=== PATIENT | male | born 1975 | race Caucasian/White ===

== ENCOUNTER 2017-04-04 17:05 | Inpatient (IN) | payer OTHER ==
[~2017-04-04] VITALS: Ht 180.3 cm; Wt 113.4 kg
--- NOTE | ~2017-04-04 | DS ---
Unit #: [id number] #: [id number] Patient: [facility] [id number] [facility] [address] [place] [address] [id number] MR#: [id number] NAME: ERWIN KATZ ROOM: [facility] Age: 41 Sex: M Admission Date: 04/04/2017 : 1975 Discharge Date: 04/08/2017 Attending Physician: Homa Torres M.D. Primary Care Physician: Generic Doctor Not In System DISCHARGE SUMMARY IDENTIFYING DATA Mr. Katz is a 41-year-old, , white male who is a resident of [place], [place] and was brought to the hospital accompanied by one of his friends. DISCHARGE DIAGNOSES Psychiatric: Alcohol dependence, moderate and acute withdrawals; alcohol-induced mood disorder. Medical: Hypertension and asthma. Stressors: Moderate psychosocial stressors. HISTORY OF PRESENT ILLNESS Please see initial psychiatric evaluation for details. PAST PSYCHIATRIC HISTORY Please see initial psychiatric evaluation for details. PAST MEDICAL HISTORY Please see initial psychiatric evaluation for details. HOSPITAL COURSE The patient was admitted to the adult psychiatric unit at [facility] [place] and was oriented to the hospital environment. Routine p.r.n. medications were initiated, and he was started back on his home medications and medications were adjusted and detox protocol was initiated and he was closely monitored. He was taking medications regularly and was tolerating them fairly well, and was able to show a decent therapeutic response with improvement in depression and anxiety and as such, it was decided that he will be discharged home and will continue treatment on an outpatient basis. DISCHARGE CONDITION Stable. PROGNOSIS Fair. Dictated by... Lucía Pino/carlene TD: 04/08/2017 12:59 Unit #: [id number] #: [id number] Patient: ERWIN KATZ JOB #: [id number] DISCHARGE SUMMARY Page 1 of 1 X Homa Torres MD X DISCHARGE SUMMARY
--- NOTE | ~2017-04-04 | PA ---
Unit #: [id number] #: [id number] Patient: ERWIN OLIVEIRA [id number] [facility] [address] [place] [address] [id number] MR#: [id number] NAME: ERWIN OLIVEIRA ROOM: P178 Age: 41 Sex: M Admission Date: 04/04/2017 : 1975 Date of Assessment: Attending Physician: Homa Torres M.D. Admitting Physician: Homa Torres M.D. Primary Care Physician: Elke Doctor Not In System PSYCHIATRIC ASSESSMENT DATE OF SERVICE 04/05/2017. IDENTIFYING DATA Mr. Tran is a 41-year-old white male who is a resident of [place], [place], and was brought to the hospital accompanied by one of his friend. CHIEF COMPLAINT "I've been drinking and I use Benadryl." HISTORY OF PRESENT ILLNESS Mr. Tran is a 41-year-old white male with history of alcohol dependence, who was brought to the hospital. Upon presentation, had a blood alcohol level of 0.162 and reports that he was brought in by sponsor today after 30 days of clean time and he reports that he relapsed related to his girlfriend accusing of drinking on Friday and "I used Benadryl and did not drink," so this made me mad and I relapsed and since then, "I've been drinking beer until I black out. Today, I used eight to nine 24 5-ounce beers." He reports increasing depression, anxiety, irritability, restlessness, but denies any suicidal ideations, intent, or plan. SUBSTANCE ABUSE HISTORY The patient reports alcohol to be his drug of choice and has been drinking since he was 18 years old and currently has been drinking a 20 to 30 beers a day. PAST PSYCHIATRIC HISTORY The patient reports [facility] and currently, he is not active in any treatment program, is not seeing a psychiatrist, and is not taking any psychotropic medications. PAST MEDICAL HISTORY Significant for asthma, history of withdrawal seizures. ALLERGIES No known medication allergies. CURRENT MEDICATIONS Topamax, doxepin, and Ventolin. PERSONAL AND SOCIAL HISTORY Unit #: [id number] #: [id number] Patient: ERWIN OLIVEIRA A 41-year-old white male who reports that he is single, unemployed, and lives at home with his father and has fairly decent social support system. MENTAL STATUS EXAMINATION Young white male who was casually dressed with fair personal hygiene, appears to be in no acute distress or discomfort. He was awake and alert on interaction with intact orientation to time, place, and person. His mood was anxious and depressed with a congruent affect. His speech was slow and restricted in content. His thought processes were disorganized with some looseness of associations and suicidal ideations. His insight and judgment remain significantly impaired. DIAGNOSTIC IMPRESSION Psychiatric: Alcohol dependence, moderate and acute withdrawals; alcohol-induced mood disorder. Medical: Hypertension and asthma. Stressors: Moderate psychosocial stressors. TREATMENT PLAN 1. The patient has presented with history of substance abuse and has been decompensating and will need inpatient hospitalization for detoxification, and safety and stabilization. We will start him back on his home medications. We will adjust the medications and monitor response. 2. Supportive therapy was provided to the patient. 3. Safe, structured, and nourishing environment will be provided. ESTIMATED LENGTH OF STAY 4 to 5 days. ABILITY TO HELP SELF Limited. WILLINGNESS TO HELP SELF The patient appears to be willing to help self. STRENGTHS 1. Communicative. 2. Cooperative. PROBLEMS 1. Chronic dysphoric symptoms. 2. Chronic chemical dependency. 3. Poor social support system. DISCHARGE CRITERIA This will be contingent upon the patient's ability to go through detox without having any significant withdrawal symptoms as well as his ability to stay safe to himself, particularly after discharge from the hospital. Dictated by... Lucía Pino/carlene TD: 04/05/2017 18:27 JOB #: [id number] Unit #: [id number] #: [id number] Patient: ERWIN OLIVEIRA PSYCHIATRIC ASSESSMENT Page 1 of 1 X Homa Torres MD PSYCHIATRIC ASSESSMENT
--- NOTE | ~2017-04-04 | HP ---
Unit #: [id number] #: [id number] Patient: ERWIN OLIVEIRA [id number] [place] [address] [id number] MR#: [id number] NAME: ERWIN OLIVEIRA ROOM: P178 Age: 41 Sex: M Admission Date: 04/04/2017 : 1975 Attending Physician: Homa Torres M.D. Admitting Physician: Homa Torres M.D. Primary Care Physician: Generic Doctor Not In System HISTORY AND PHYSICAL HISTORY OF PRESENT ILLNESS Patient is a 41-year-old male who states he is admitted due to alcohol abuse. PAST MEDICAL HISTORY None. PAST SURGICAL HISTORY None. ALLERGIES None. SOCIAL HISTORY Positive for alcohol and cocaine yesterday. FAMILY HISTORY Noncontributory. REVIEW OF SYSTEMS CONSTITUTIONAL: No fever or chills. HEENT: Denies any sore throat, ear pain or runny nose. CARDIOVASCULAR: Denies chest pain, irregular heart rhythm or palpitations. CHEST: Denies shortness of breath or cough. No hemoptysis. GASTROINTESTINAL: Denies nausea, vomiting, diarrhea or chronic constipation. ENDOCRINE: Denies history of increased thirst or urination. No recent significant weight loss or gain. GENITOURINARY: Denies dysuria, frequency, or hematuria. SKIN: Denies any rashes. HEMATOLOGIC: Denies history of increased bleeding or bruising. MUSCULOSKELETAL: Denies any hot, swollen joints. No generalized muscle pain. NEUROLOGIC: Denies problems with vision or speech. No frequent, severe headaches. No numbness, tingling or weakness in any extremities. Denies loss of bladder or bowel control. CURRENT MEDICATIONS 1. Topiramate 100 mg p.o. q.h.s. 2. Doxepin 50 mg p.o. q.h.s. 3. Ventolin inhaler 2 puffs p.o. q. 6 hours p.r.n. PHYSICAL EXAMINATION Unit #: [id number] #: [id number] Patient: ERWIN OLIVEIRA GENERAL: Alert, oriented, in no acute distress. VITAL SIGNS: Blood pressure 154/98, heart rate 115, respirations 20. HEIGHT: 5 feet 11 inches. WEIGHT: 250 pounds. SKIN: Warm and dry without rash or lesion. Multiple tattoos to bilateral upper arms, back, bilateral lower legs. HEENT: Normocephalic. TMs not viewed. Oral and nasal passages clear. Conjunctivae clear. PERRLA. EOMs intact. NECK: Supple without lymphadenopathy or thyromegaly. HEART: Regular rate and rhythm without murmur. LUNGS: Clear. ABDOMEN: Soft, nontender, without masses or hepatosplenomegaly. : Not done. EXTREMITIES: No evidence of cyanosis, clubbing or edema. Moves all without focal deficit. NEUROLOGICAL: Grossly within normal limits. Cranial Nerves: II: Visual clark are intact. III, IV AND : Extraocular movements are intact. Pupils are equal, round and reactive to light. V: Facial sensation is grossly normal. VII: Facial movements and expression are normal. VIII: Auditory acuity grossly intact. IX, X: Uvula is midline. Phonation is normal. XI: Patient shrugs shoulders and turns head normally. XII: Tongue protrudes in the midline. Sensory and Motor Function: Sensory and motor sensation is grossly normal. Motor: moves all extremities well. Coordination: Gait is normal. Deep Tendon Reflexes: Intact. IMPRESSION Psychiatric admission. RECOMMENDATIONS PSYCHIATRIC: Per psychiatrist. MEDICAL: No contraindication to participate in facility's activities. MEDICAL PROGNOSIS Good. Dictated by... Samira Valdes/fernando TD: 04/05/2017 17:50 JOB #: [id number] Unit #: [id number] #: [id number] Patient: ERWIN OLIVEIRA HISTORY AND PHYSICAL Page 1 of 1 X Paige Santillan APR X HISTORY AND PHYSICAL
--- NOTE | ~2017-04-04 | PN ---
Unit #: [id number] #: [id number] Patient: ERWIN KATZ [id number] [facility] [address] [place] [address] [id number] MR#: [id number] NAME: ERWIN KATZ ROOM: P178 Age: 41 Sex: M Admission Date: 04/04/2017 : 1975 Attending Physician: Homa Torres M.D. Admitting Physician: Homa Torres M.D. Primary Care Physician: Generic Doctor Not In System [facility] PROGRESS NOTES DATE 04/06/2017. DISCUSSION Mr. Katz is a 41-year-old white male who was seen today and chart reviewed. He was discussed with the staff. He has been anxious but (1) He has been taking his medications and tolerating them with no reported side effects. MENTAL STATUS EXAMINATION Young white male who was casually dressed and fair hygiene. He appeared to be in no acute distress. He appears alert. His mood is anxious. He has a congruent affect. His speech is slow. He denies any suicidal or homicidal ideation. His insight and judgment appear slightly impaired. TREATMENT PLAN 1. Continue with his current medication and treatment protocol. We will monitor his response to medication and make adjustments as needed. 2. Will continue to follow up. Dictated by... Homa Torres M.D. IAA/gz TD: 04/07/2017 14:33 JOB #: [id number] [facility] PROGRESS NOTES Page 1 of 1 X Homa Torres MD PROGRESS NOTE
--- NOTE | ~2017-04-04 | PN ---
Unit #: [id number] #: [id number] Patient: ERWIN KATZ [id number] [facility] [address] [place] [address] [id number] MR#: [id number] NAME: ERWIN KATZ ROOM: [facility] Age: 41 Sex: M Admission Date: 04/04/2017 : 1975 Attending Physician: Homa Torres M.D. Admitting Physician: Homa Torres M.D. Primary Care Physician: Generic Doctor Not In System [facility] PROGRESS NOTES DATE OF SERVICE 04/07/2017 DISCUSSION Mr. Katz is a 41-year-old white male with substance abuse and mood disorder who was seen today. Chart was reviewed and case was discussed with the staff. He has been showing very poor insight into his situation and trying to actively mask and minimize his alcohol addiction and wishing to leave the treatment program. Meanwhile, he has been taking the medications and tolerating them fairly well with no reported side effects. MENTAL STATUS EXAMINATION Young white male who is casually dressed with fair personal hygiene, appears to be in no acute distress or discomfort. The patient was awake and alert on interaction with intact orientation. His mood is anxious with congruent affect. He denies any suicidal or homicidal ideations and also denies any auditory or visual hallucinations. His insight and judgment remain slightly impaired. TREATMENT PLAN 1. We will continue him on his current medications and treatment protocol. We will monitor his response to the medications and make further adjustments as needed. 2. We will continue to follow up. Dictated by... Lucía Pino/long TD: 04/08/2017 07:24 JOB #: [id number] Unit #: [id number] #: [id number] Patient: ERWIN KATZ PROGRESS NOTES Page 1 of 1 X Homa Torres MD PROGRESS NOTE
[~2017-04-04 17:05] MED LIST: ALBUTEROL17 GM; ALBUTEROL17 GM INH; ALLEGRA60 MG PO; AMOXICILLIN500 M1 PO; DAYQUIL; DOXEPIN HCL50 M1; KEFLEX PO; LORTAB 5/500 TA1 TA1 PO; MEDROL4 MG/DOSE- PO; MOTRIN600 MG PO; NAPROSYN375 MG PO; NAPROSYN500 MG PO; NO MEDICATIONS; PERCOCET5/325 PO; PRILOSEC20 M1 PO; TESSALON200 MG PO; TOPAMAX; TYLENOL #3 PO; VIBRAMYCIN100 M1 PO; VOLTAREN PO; VOLTAREN50 MG PO; VOLTAREN75 MG PO; ZOFRAN ODT4 MG; ZOVIRAX PO
[2017-04-05 11:29] LABS: BASOPHIL% 0.4 % (0-2.5); EOSINOPHIL% 0.4 % (0.0-7.0); HEMATOCRIT 45.7 % (38.0-50.0); HEMOGLOBIN 15.2 gm/dL (13.0-16.0); LYMPHOCYTE# 1.2 X10e3 (1.0-3.5); LYMPHOCYTE% 22.9 % (17.0-45.0); MEAN CELL VOLUME 90.3 FL (83-96); MEAN CORPUSCULAR HGB CONC 33.3 g/dL (30-36); MEAN PLATELET VOLUME 9.4 FL (6.5-11.5); MONOCYTE# 0.6 X10e3 (0-1.0); MONOCYTE% 11.5 % (3.0-12.0); NEUTROPHIL# 3.4 X10e3 (1.5-7.1); NEUTROPHIL% 64.8 % (40-75); PLATELET COUNT 127 X10e3 (140-420); RED BLOOD COUNT 5.06 X10e (3.90-5.60); RED CELL DISTRIBUTION WIDTH 13.8 % (11.0-15.5); WHITE BLOOD COUNT 5.2 X10e3 (4.0-10.5)
[2017-04-05 11:34] LABS: DIFF IND NO
[2017-04-05 13:36] LABS: ALBUMIN SERUM 4.5 g/dL (3.5-5.0); BILIRUBIN,TOTAL 1.3 mg/dL (0.2-2.0); BUN/CREATININE RATIO 4.28; CALCIUM SERUM 8.8 mg/dL (8.4-10.2); CREATININE SERUM 1.4 mg/dL (0.6-1.4); GLOM FILT RATE Estimated 62.9 mL/min (>60); POTASSIUM 3.2 mmol/L (3.5-5.1); PROTEIN TOTAL SERUM 7.7 g/dL (6.0-8.3)
== END 2017-04-08 09:15 | DRG 897 ==
LOC: P1E 19:31
PROVIDERS: Psychiatry & Neurology Psychiatry
PROC: HZ2ZZZZ Detoxification Services for Substance Abuse Treatment (ICD-10-PCS; principal; 2017-04-04)
DX: F10.230 Alcohol dependence with withdrawal, uncomplicated (principal); R45.851 Suicidal ideations; F10.24 Alcohol dependence with alcohol-induced mood disorder; I10 Essential (primary) hypertension; J45.909 Unspecified asthma, uncomplicated
CPT/HCPCS: 80053; 85025; 86592

== ENCOUNTER 2017-04-14 13:00 | Inpatient (IN) | payer OTHER ==
[~2017-04-14] VITALS: Ht 180.3 cm; Wt 113.4 kg
--- NOTE | ~2017-04-14 | DS ---
Unit #: [id number] #: [id number] [facility]: [facility] [id number] [facility] [address] [place] [address] [id number] I MR#: [id number] NAME: ERWIN KATZ ROOM: [facility] Age: 41 Sex: M Admission Date: 04/14/2017 : 1975 Discharge Date: 04/17/2017 Attending Physician: Homa Torres M.D. Primary Care Physician: Generic Doctor Not In System DISCHARGE SUMMARY IDENTIFICATION DATA Mr. Katz is a 41-year-old single white male who is a resident of [place], [place], and is known to us from previous encounter and was self-referred to the hospital on voluntary basis. DISCHARGE DIAGNOSES PSYCHIATRIC: Major depressive disorder, recurrent, moderate, without psychotic features. Alcohol dependence, moderate. MEDICAL: History of withdrawal seizures. HISTORY OF PRESENT ILLNESS Same as in initial psychiatric evaluation. PAST PSYCHIATRIC HISTORY Same as in initial psychiatric evaluation. PAST MEDICAL HISTORY Same as in initial psychiatric evaluation. HOSPITAL COURSE The patient was admitted to the adult chemical dependency and psychiatric unit at [facility] and was oriented to the hospital environment. Routine p.r.n. medications were initiated, and he was started back on his home medications, and medications were adjusted, and detox protocol was not initiated as the patient had just left the hospital and has not been gone long enough to qualify for yet another detox. However, Effexor as an antidepressant was initiated, and he was closely monitored. He is taking the medications regularly and was tolerating them fairly well and was able to show decent therapeutic response. As such it was decided that he will be discharged home. We will continue treatment on outpatient basis. DISCHARGE MEDICATIONS Effexor XR 75 mg a day for depression. CONDITION AT DISCHARGE Stable. PROGNOSIS Fair. Dictated by... Unit #: [id number] #: [id number] Patient: ERWIN KATZ Lucía Pino/long TD: 04/17/2017 07:09 JOB #: [id number] DISCHARGE SUMMARY Page 1 of 1 X Homa Torres MD X DISCHARGE SUMMARY
--- NOTE | ~2017-04-14 | HP ---
Unit #: [id number] #: [id number] Patient: JUAN DIEGO OLIVEIRA [id number] [facility] [address] [place] [address] [id number] I MR#: [id number] NAME: JUAN DIEGO OLIVEIRA ROOM: P179 Age: 41 Sex: M Admission Date: 04/14/2017 : 1975 Attending Physician: Homa Torres M.D. Admitting Physician: Homa Torres M.D. Primary Care Physician: Generic Doctor Not In System HISTORY AND PHYSICAL Juan Diego is a 41-year-old admitted to [facility] because of his continued abuse of alcohol. He was just discharged from this facility. Patient was seen and H and P dated 04/05/17 was reviewed. This is current. No changes. Please see H and P dated 04/05/17. Dictated by... Sienna Shankar P.A.-C. for Lucía Morrison/fernando TD: 04/15/2017 15:12 JOB #: [id number] HISTORY AND PHYSICAL Page 1 of 1 X Sienna Shankar HISTORY AND PHYSICAL
--- NOTE | ~2017-04-14 | PN ---
Unit #: [id number] #: [id number] Patient: ERWIN KATZ [id number] [facility] [address] [place] [address] [id number] I MR#: [id number] NAME: ERWIN KATZ ROOM: P179 Age: 41 Sex: M Admission Date: 04/14/2017 : 1975 Attending Physician: Homa Torres M.D. Admitting Physician: Homa Torres M.D. Primary Care Physician: Generic Doctor Not In System [facility] PROGRESS NOTES DATE 04/16/2017 DISCUSSION Mr. Katz is a 41-year-old white male discussed with the staff. He has been anxious, withdrawn and rather seclusive to himself. He has been cooperative with treatment recommendations and has been taking medications and tolerating them fairly side effects. MENTAL STATUS EXAMINATION Young white male who was casually dressed with fair personal hygiene and appears to be in no acute distress or discomfort. He was awake and alert on interaction with intact orientation. His mood was anxious with congruent affect. His speech is slow and goal-directed. He denies any suicidal or homicidal ideation. His insight and judgement remains slightly impaired. TREATMENT PLAN 1. Will continue on his current medications and treatment protocol. Will monitor his response to the medications and make further adjustments as needed. 2. Will continue to follow up. Dictated by... Homa Torres M.D. IAA/fernando TD: 04/16/2017 18:01 JOB #: [id number] Unit #: [id number] #: [id number] Patient: ERWIN KATZ PROGRESS NOTES Page 1 of 1 X Homa Torres MD PROGRESS NOTE
--- NOTE | ~2017-04-14 | PA ---
Unit #: [id number] #: [id number] Patient: [facility]ATZ [id number] [facility] [address] [place] [address] [id number] I MR#: [id number] NAME: ERWIN KATZ ROOM: P179 Age: 41 Sex: M Admission Date: 04/14/2017 : 1975 Date of Assessment: 04/15/2017 Attending Physician: Homa Torres M.D. Admitting Physician: Homa Torres M.D. Primary Care Physician: Generic Doctor Not In System PSYCHIATRIC ASSESSMENT DATE OF SERVICE 04/15/2017. IDENTIFYING DATA Mr. Katz is a 41-year-old single white male, who is a resident of [place], [place], and was recently discharged from my care less than a week ago and brought himself back to the hospital on a voluntary basis. CHIEF COMPLAINT "I attempted suicide by overdose." HISTORY OF PRESENT ILLNESS Mr. Katz is a 41-year-old white male with history of substance abuse and mood disorder, who was transferred to us from emergency room, where he presented for medical clearance after the patient attempted suicide by overdose and took 6 doxepin and 10 Topamax tablets as a suicide attempt while under the influence of alcohol and reports increasing depression, was seen to be tearful upon initial presentation and reports that he has been having difficult to cope with life and has been reporting increasing depression, anxiety, irritability, restlessness, significant consequences because of his addiction and feelings of hopelessness and helplessness, and suicidal ideations. He reports that he recently attempted suicide with a knife to his side and has superficial linear wounds on his right flank and did not seek medical attention at that time and then he started drinking and ended up taking pills last night and as such, he was taken to the emergency room for medical clearance and then was transferred to us. SUBSTANCE ABUSE HISTORY The patient reports extensive history of substance abuse and dependence, though alcohol has been his drug of choice and reports that he has been drinking since he was 18 years old and currently has been drinking 12 beers a day and denies any other substance abuse. PAST PSYCHIATRIC HISTORY The patient has had history of multiple inpatient psychiatric hospitalizations at [facility] in addition to being at [facility]. Review of the medical records indicate that he has been diagnosed and treated for mood disorder and has been on Seroquel, but has been noncompliant with medication and as such, has been decompensating. PAST MEDICAL HISTORY Asthma and history of withdrawal seizures. Unit #: [id number] #: [id number] Patient: ERWIN KATZ ALLERGIES No known medication allergies. PERSONAL AND SOCIAL HISTORY A 41-year-old white male, who reports that he is single, unemployed, and essentially homeless and has poor social support system. MENTAL STATUS EXAMINATION Young white male who was casually dressed with fair personal hygiene, appears to be in no acute distress or discomfort. He was awake and alert on interaction with intact orientation to time, place, and person. His mood was anxious and depressed with a congruent affect. His speech was slow and restricted in content. His thought processes were disorganized with some looseness of associations and suicidal ideations. His insight and judgment remain significantly impaired. DIAGNOSTIC IMPRESSION Psychiatric: Major depressive disorder, recurrent, moderate, without psychotic features; alcohol dependence, moderate and acute withdrawals. Medical: History of withdrawal seizures. Stressors: Moderate psychosocial stressors. TREATMENT PLAN 1. The patient has presented with history of mood disorder and substance abuse and has been decompensating and will need inpatient hospitalization for detoxification, safety, and stabilization. We will start him on detox protocol. We will closely monitor for any worsening withdrawal symptoms. 2. Supportive therapy was provided to the patient. 3. Safe, structured, and nourishing environment will be provided. ESTIMATED LENGTH OF STAY 5 to 7 days. ABILITY TO HELP SELF Limited. WILLINGNESS TO HELP SELF The patient appears to be willing to help self. STRENGTHS 1. Communicative. 2. Cooperative. PROBLEMS 1. Chronic dysphoric symptoms. 2. Poor social support system. DISCHARGE CRITERIA This will be contingent upon the patient's ability to show resolution of his depression and anxiety and his ability to stay safe to himself, particularly after discharge from the hospital. Dictated by... Homa Torres M.D. IAA/slaval Unit #: [id number] #: [id number] Patient: ERWIN KATZ TD: 04/15/2017 07:41 JOB #: [id number] PSYCHIATRIC ASSESSMENT Page 1 of 1 X Afaq,Homa Carrasco MD X PSYCHIATRIC ASSESSMENT
== END 2017-04-17 12:15 | DRG 885 ==
LOC: P1E 17:04
PROC: HZ2ZZZZ Detoxification Services for Substance Abuse Treatment (ICD-10-PCS; principal; 2017-04-14)
DX: F33.1 Major depressive disorder, recurrent, moderate (principal); F10.239 Alcohol dependence with withdrawal, unspecified; J45.909 Unspecified asthma, uncomplicated